=== PATIENT | male | born 1995 | race American Indian/Alaskan Native ===

== ENCOUNTER 2020-09-14 12:39 | Emergency (ER) | payer SELFPAY ==
[2020-09-14 13:16] VITALS: BP 128/71
--- NOTE | 2020-09-14 14:09 | Event Note ---
ED Screening Note Date of service: 09/14/20 Time: 14:08 ED Screening Note: Patient complains of cough, nausea, vomiting, and abdominal pain Heart rate of 103 with a temp of 100.1 This initial assessment/diagnostic orders/clinical plan/treatment(s) is/are subject to change based on patients health status, clinical progression and re- assessment by fellow clinical providers in the ED. Further treatment and workup at subsequent clinical providers discretion. Patient/guardian urged not to elope from the ED as their condition may be serious if not clinically assessed and managed. Initial orders include: Labs Chest x-ray
--- NOTE | 2020-09-14 14:33 | XRay Report ---
CHEST 2 VIEWS INDICATION / CLINICAL INFORMATION: cough, fever. COMPARISON: None available. FINDINGS: SUPPORT DEVICES: None. HEART / MEDIASTINUM: No significant abnormality. LUNGS / PLEURA: No significant pulmonary or pleural abnormality. No pneumothorax. ADDITIONAL FINDINGS: No significant additional findings. IMPRESSION: 1. No acute findings. Signer Name: Emeka Rodriguez MD Signed: 09/14/2020 2:28 PM Workstation Name: [id number]
[2020-09-14] MEDS ORDERED: ONDANSETRON 4 MG/2 ML INJ IV ONE (15:07)
[2020-09-14] MEDS ORDERED: SODIUM CHLORIDE 0.9% 1000 ML 1,000 ML IV ONE (15:07)
[2020-09-14 15:13] LABS: Basophils % (Auto) 0.2 % (0.0-1.8); Eosinophils % (Auto) 0.2 % (0.0-4.3); Hematocrit 40.5 % (35.5-45.6); Hemoglobin 14.2 gm/dl (11.8-15.2); Lymphocytes # (Auto) 0.5 K/mm3 (1.2-5.4); Lymphocytes % (Auto) 2.9 % (13.4-35.0); Mean Corpuscular HGB Conc 35 % (32-34); Mean Corpuscular Volume 87 fl (84-94); Monocytes # (Auto) 1.3 K/mm3 (0.0-0.8); Platelet Count 311 K/mm3 (140-440); Red Blood Count 4.68 M/mm3 (3.65-5.03); Red Cell Distribution Width 14.1 % (13.2-15.2)
[2020-09-14 15:50] LABS: Bilirubin,Urine NEG (Negative); Blood,Urine NEG (Negative); Color,Urine Yellow (Yellow); Protein,Urine <15 mg/dL mg/dL (Negative); Urobilinogen,Urine < 2.0 mg/dL (<2.0)
[2020-09-14 15:52] LABS: WBC,Urine < 1.0 /HPF (0.0-6.0)
[2020-09-14 15:54] LABS: Alanine Aminotransferase 11 units/L (7-56); Albumin 4.6 g/dL (3.9-5); Blood Urea Nitrogen 9 mg/dL (9-20); Calcium 8.8 mg/dL (8.4-10.2); Hemolysis Index 3
[2020-09-14] MEDS ORDERED: ACETAMINOPHEN 500 MG TAB PO ONE (15:55)
[2020-09-14 15:57] LABS: BUN/Creatinine Ratio 13
--- NOTE | 2020-09-14 16:00 | Emergency Department Report ---
Minor Respiratory - HPI Chief Complaint: Nausea/Vomiting/Diarrhea Stated Complaint: VOMITING/CHILLS Time Seen by Provider: 09/14/20 14:08 Duration: Today Pain Location: Chest Severity: mild Minor Respiratory: Yes Able to Tolerate Fluids, Yes Cough, Yes Fever, No Rhinorrhea, No Sore Throat, No Ear Pain, No Sick Contacts, No Hemoptysis, No Chest Pain, No Shortness of Breath Other History: Patient is a pleasant 25-year-old male that comes to the emergency room today after having a coughing episode that resulted in vomiting while at work. He states that he felt sore when he woke up. However, he states that is not unusual. He went to work and drank some tea. This was around 9 AM he reported to work. By 1130 he coughed, vomited that he and they sent him to the emergency room. He denies diarrhea. Patient denies exposure to Covid that is known. He denies having any fever at home. He denies any chills. He denies any prior nausea vomiting prior to the episode that occurred today at work. Patient was ambulatory nontoxic and [id number] on arrival to the ER. ED Review of Systems ROS: Stated complaint: VOMITING/CHILLS Other details as noted in HPI Comment: All other systems reviewed and negative ED Past Medical Hx - Past Medical History Previous Medical History?: No - Surgical History Past Surgical History?: No - Family History Family history: no significant - Social History Smoking Status: Current Some Day Smoker Substance Use Type: Alcohol - Medications Home Medications: Home Medications Medication Instructions Recorded Confirmed Last Taken Type Ondansetron [Zofran Odt] 4 mg PO Q8HR PRN #10 tab.rapdis 09/14/20 Unknown Rx Minor Respiratory Exam - Exam General: Vital signs noted. No distress. Alert and acting appropriately. HEENT: Yes Moist Mucous Membranes, No Pharyngeal Erythema, No Pharyngeal Exudates, No Rhinorrhea, No Conjuctival Injection, No Frontal Tenderness, No Maxillary Tenderness Ear: Neither TM Bulge, Neither TM Erythema, Neither EAC Pain, Neither EAC Discharge Neck: Yes Supple, No Adenopathy Lungs: Yes Good Air Exchange, No Wheezes, No Ronchi, No Stridor, No Cough, No Labored Respirations, No Retractions, No Use of Accessory Muscles, No Other Abnormal Lung Sounds Heart: Yes Regular, No Murmur Abdomen: Yes Normal Bowel Sounds, No Tenderness, No Peritoneal Signs Skin: No Rash, No Edema Neurologic: Alert and oriented, no deficits. Musculoskeletal: Unremarkable. ED Course Vital Signs 09/14/20 13:15 Temperature 100.1 F H Pulse Rate 103 H Respiratory 16 Rate Blood Pressure 128/71 [Right] O2 Sat by Pulse 98 Oximetry ED Medical Decision Making - Lab Data Result diagrams: 09/14/20 15:01 09/14/20 15:01 - Radiology Data Radiology results: report reviewed No acute process - Medical Decision Making Labs 09/14/20 09/14/20 09/14/20 15:01 15:01 15:33 WBC 16.5 H RBC 4.68 Hgb 14.2 Hct 40.5 MCV 87 MCH 31 MCHC 35 H RDW 14.1 Plt Count 311 Lymph % (Auto) 2.9 L [place] % (Auto) 8.0 H Eos % (Auto) 0.2 Baso % (Auto) 0.2 Lymph # (Auto) 0.5 L [place] # (Auto) 1.3 H Eos # (Auto) 0.0 Baso # (Auto) 0.0 Seg Neutrophils % 88.7 H Seg Neutrophils # 14.7 H Sodium 140 Potassium 4.0 Chloride 104.7 Carbon Dioxide 23 Anion Gap 16 BUN 9 Creatinine 0.7 L Estimated GFR > 60 BUN/Creatinine Ratio 13 Glucose 89 Lactic Acid 0.80 Calcium 8.8 Total Bilirubin 0.70 AST 18 ALT 11 Alkaline Phosphatase 153 H Total Protein 7.8 Albumin 4.6 Albumin/Globulin Ratio 1.4 Lipase 12 L Urine Color Urine Turbidity Urine pH Ur Specific Bailey Urine Protein Urine Glucose (UA) Urine Ketones Urine Blood Urine Nitrite Urine Bilirubin Urine Urobilinogen Ur Leukocyte Esterase Urine WBC (Auto) Urine RBC (Auto) 09/14/20 Unknown WBC RBC Hgb Hct MCV MCH MCHC RDW Plt Count Lymph % (Auto) [place] % (Auto) Eos % (Auto) Baso % (Auto) Lymph # (Auto) [place] # (Auto) Eos # (Auto) Baso # (Auto) Seg Neutrophils % Seg Neutrophils # Sodium Potassium Chloride Carbon Dioxide Anion Gap BUN Creatinine Estimated GFR BUN/Creatinine Ratio Glucose Lactic Acid Calcium Total Bilirubin AST ALT Alkaline Phosphatase Total Protein Albumin Albumin/Globulin Ratio Lipase Urine Color Yellow Urine Turbidity Clear Urine pH 6.0 Ur Specific Bailey 1.023 Urine Protein <15 mg/dl Urine Glucose (UA) Neg Urine Ketones Tr Urine Blood Neg Urine Nitrite Neg Urine Bilirubin Neg Urine Urobilinogen < 2.0 Ur Leukocyte Esterase Neg Urine WBC (Auto) < 1.0 Urine RBC (Auto) 2.0 Vital Signs 09/14/20 13:15 Temperature 100.1 F H Pulse Rate 103 H Respiratory 16 Rate Blood Pressure 128/71 [Right] O2 Sat by Pulse 98 Oximetry XRAY NOTED PT IS AMBULATORY NON TOXIC AND NON ILL APPEARING EXAM UNREMARKABLE ON REEVAL 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 ETIO URINE NEG XRAY NEG ABD SNT NO BACK PAIN;DYSURIA OR DISCHARGE PT WILL NEED RAPID COVID TO GO BACK TO WORK - WE WILL PROVIDE HIM A LIST OF CLINICS PT DC HOME WITH DC PLAN OF CARE INCLUDING PCP FOLLOW UP. WORK NOTE PROVIDED - Differential Diagnosis URI/GASTROENTERITIS/PNA/COVID Critical care attestation.: If time is entered above; I have spent that time in minutes in the direct care of this critically ill patient, excluding procedure time. ED Disposition Clinical Impression: URI (upper respiratory infection) Disposition: DC-01 TO HOME OR SELFCARE Is pt being admited?: No Does the pt Need Aspirin: No Condition: Stable Instructions: Viral Respiratory Infection, [id number] Additional Instructions: MEDS ORDERED TODAY STAY WELL HYDRATED WITH WATER MOTRIN OR TYLENOL FOR FEVER FOLLOW UP WITH PCP IF PROBLEMS PERSIST REFERRAL BELOW DIET AND ACTIVITY TOLERATED Prescriptions: Ondansetron [Zofran Odt] 4 mg PO Q8HR PRN #10 tab.rapdis PRN Reason: Vomiting Referrals: PATRICIA GRIFFIN MD [Staff Physician] - 3-5 Days Forms: Work/School Release Form(ED) Time of Disposition: 16:03
== END 2020-09-14 17:19 | disposition home or self-care (01) ==
LOC: ED 12:39
DX: J06.9 Acute upper respiratory infection, unspecified (principal); F17.200 Nicotine dependence, unspecified, uncomplicated; Z79.899 Other long term (current) drug therapy
CPT/HCPCS: 36415; 71046; 80053; 81001; 82140; 83690; 85025; 96361; 96374; 99284; J2405; J7030